=== PATIENT | male | born 1935 | race Caucasian/White ===

== ENCOUNTER → 2017-02-09 | Outpatient (CLI) | payer MEDICARE | LOC: OPSV 01-26 09:00 → CT 01-26 11:30 → OPSV 08:15 | DX: C20 Malignant neoplasm of rectum (principal); D50.9 Iron deficiency anemia, unspecified; K90.9 Intestinal malabsorption, unspecified; N28.9 Disorder of kidney and ureter, unspecified; C18.9 Malignant neoplasm of colon, unspecified; R10.9 Unspecified abdominal pain; Z03.89 Encounter for observation for other suspected diseases and conditions ruled out; J98.4 Other disorders of lung; K92.2 Gastrointestinal hemorrhage, unspecified; R93.3 Abnormal findings on diagnostic imaging of other parts of digestive tract | CPT/HCPCS: 71260; 74160; 96360; 96361; J7030; J7050; Q9962 ==